=== PATIENT | female | born 1995 | race Caucasian/White ===

== ENCOUNTER 2018-05-16 09:45 | Emergency (ER) | payer OTHER ==
[2018-05-16] MEDS: CEPHALEXIN 500 MG CAP PO (10:20)
[2018-05-16] MEDS: predniSONE 20 MG TAB PO (10:20)
== END 2018-05-16 10:46 | disposition home or self-care (01) ==
LOC: FTE 09:45
DX: L25.9 Unspecified contact dermatitis, unspecified cause (principal)
CPT/HCPCS: 99283; J7512

== ENCOUNTER 2018-11-14 09:28 | Emergency (ER) | payer OTHER | END 2018-11-14 11:29 | disposition home or self-care (01) | LOC: FTE 09:28 | DX: B35.6 Tinea cruris (principal); F17.210 Nicotine dependence, cigarettes, uncomplicated | CPT/HCPCS: 99283 ==